=== PATIENT | female | born 1945 | race Caucasian/White ===

== ENCOUNTER 2018-10-03 16:13 | Inpatient (IN) | payer OTHER ==
[~2018-10-03] VITALS: Ht 162.6 cm; Wt 66.0 kg
--- NOTE | ~2018-10-03 | CON ---
[address] [address] CONSULTATION Name: JOSE MENENDEZ Room: [address] IN .R.#: [id number] Admission: 10/03/18 Attend Phys: Sixto Hale MD Discharge: Date of : 43 Report #: [id number] THIS REPORT FOR: //name// CC: Ancelmo Rodriguez DO Sixto Hale DATE OF SERVICE: 10/04/2018 INDICATION: Chest pain and elevated troponin consistent with non-ST elevation myocardial infarction. HISTORY OF PRESENT ILLNESS: The patient is a very pleasant 73-year-old white female with cardiac risk factors including hypertension, dyslipidemia, type 2 diabetes mellitus and family history of coronary artery disease. She also has peripheral vascular disease with recent right lower extremity intervention. She presented to the hospital with chest discomfort described as midsternal in location intermittently for the past week. She has also had increasing dyspnea on exertion and orthopnea for the past week. She has had swelling in her lower extremities for the past several days. She reports the chest pain is midsternal in location and associated with shortness of breath, but no diaphoresis, nausea or vomiting. She is without other cardiac complaint. PAST MEDICAL HISTORY: 1. Peripheral vascular disease. 2. Hyperlipidemia. 3. Hypertension. 4. Type 2 diabetes mellitus. 5. Previous C-spine surgery. 6. Complete hysterectomy. FAMILY HISTORY: Positive for coronary artery disease. SOCIAL HISTORY: The patient smoked, but quit smoking 25 years ago. She does not drink alcohol. ALLERGIES: SULFA. HOME MEDICATIONS: Glipizide 5 mg daily, aspirin 81 mg daily, glyburide 1.25 mg b.i.d., insulin 25 units at bedtime, Prozac 20 mg daily, lisinopril 20 mg daily, lovastatin 20 mg daily, Plavix 75 mg daily. REVIEW OF SYSTEMS: A 14-point review of systems is positive for some right-sided weakness from previous stroke. She has had a 45-pound weight loss in the last year. She has a nocturnal cough. [place] [address] CONSULTATION Name: JOSE MENENDEZ Room: [address] IN [facility]#: [id number] Admission: 10/03/18 Attend Phys: Sixto Hale MD Discharge: Date of : 43 Report #: [id number] outlined above. She has dyspnea on exertion, orthopnea and paroxysmal nocturnal dyspnea. She reports history of heart murmur as a younger adult. She reports lower extremity edema. She has type 2 diabetes mellitus. She reports medical allergies outlined above. She reports glasses without acute visual loss. Otherwise, 14-point review of systems was unremarkable. PHYSICAL EXAMINATION: VITAL SIGNS: Blood pressure 125/69, pulse 72 and regular. GENERAL: This is a pleasant elderly female in no distress. Mood and affect appropriate. HEENT: The patient is wearing glasses. Extraocular muscles intact. Mucous membranes moist. NECK: Shows no jugular venous distension. There are no carotid bruits. CHEST: Reveals clear lung felix without wheezes or rales. CARDIOVASCULAR: Reveals a regular rhythm. I do not appreciate gallop or murmur. ABDOMEN: Reveals normal bowel sounds. The abdomen is soft and nontender. EXTREMITIES: Shows no edema at this time. SKIN: Warm and dry. LABORATORY DATA: A 12-lead EKG shows sinus rhythm with Q-waves in leads V1 through V3. There is QRS widening consistent with a nonspecific intraventricular conduction delay. The rhythm is sinus. Labs are reviewed. Initial troponin was 0.44 followed by 0.46 and 0.46. Chest x-ray showed no acute cardiopulmonary abnormality. IMPRESSION AND RECOMMENDATIONS: 1. Non-ST elevation myocardial infarction. We will proceed with invasive cardiac catheterization. Continue aspirin and Plavix at this time. Further intervention pending the results of that study. 2. Symptoms to suggest acute heart failure. We will obtain further evaluation of left ventricular systolic function. We will adjust medications according to those findings. The patient presently appears stable. 3. Peripheral vascular disease. The patient has followup with Vascular Surgery in the near future for intervention to the left lower extremity where she is having stable claudication symptoms. 4. Diabetes per primary physician. 5. Hypertension, adequately controlled on current cardiac regimen. 6. Dyslipidemia. We will check fasting lipid profile. Continue statin agents as outpatient. By: 1125 2230William Julian MD, FACC /nt
[~2018-10-03 16:13] MED LIST: ALTACE10 M1 PO; ASPIRIN EC81 M1 PO; CENTRUM SILVER1 EAC4 PO; FENOFIBRATE54 MG PO; GLIPIZIDE XL5 MG PO; GLUCOPHAGE1000 MG PO; NEXIUM40 MG PO; ODORLESS GARLI500 MG PO; OS-CAL 500+D C1 EACH PO; PREDNISONE 20 M20 M1 PO; VISTARIL 25 MG25 M1 PO; XALATAN2.5 ML
[2018-10-03 16:18] VITALS: BP 125/80
[2018-10-03] MEDS ORDERED: PROZAC20 MG PO (16:23)
[2018-10-03] MEDS ORDERED: LOVASTATIN 20 M20 MG PO (16:24)
[2018-10-03] MEDS ORDERED: LISINOPRIL20 MG PO (16:24)
[2018-10-03] MEDS ORDERED: PLAVIX 75 MG TA75 M1 PO (16:24)
[2018-10-03] MEDS ORDERED: GLYBURIDE 2.52.5 MG PO (16:24)
[2018-10-03] MEDS ORDERED: BASAGLAR K100 UNIT/1 SQ (16:25)
[2018-10-03 16:52] LABS: ABSOLUTE BASOPHILS 0.1 thou/uL (0.0-0.2); ABSOLUTE EOSINOPHILS 0.1 thou/uL (0.0-0.7); ABSOLUTE LYMPHOCYTES 2.1 thou/uL (0.8-5.3); ABSOLUTE NEUTROPHILS 6.9 thou/uL (1.6-8.1); BASOPHILS 0.5 %; EOSINOPHILS 0.8 %; HEMATOCRIT 39.7 % (37.0-47.0); HEMOGLOBIN 12.8 gm/dL (12.0-15.0); LYMPHOCYTES 20.8 %; MCHC 32.3 g/dL (28.0-37.0); MCV 86.6 fL (80.0-100.0); NUCLEATED RBCS 0 /100WBC; PLATELET COUNT* 236 thou/uL (150-400); POLYS 67.9 %; RBC 4.58 mil/uL (4.20-5.00); RDW-CV 15.6 % (10.5-14.5); WBC 10.2 thou/uL (4.0-11.0)
[2018-10-03 17:02] LABS: APTT 25.8 Seconds (25.0-31.3); INR 1.2
[2018-10-03 17:11] LABS: CALCIUM 9.1 mg/dL (8.5-10.1); CREATININE 0.9 mg/dL (0.6-1.3); POTASSIUM 3.3 mmol/L (3.5-5.1); TROPONIN-I LEVEL 0.44 ng/mL (<0.06)
[2018-10-03 17:15] LABS: ALBUMIN 3.1 g/dL (3.4-5.0); CK-MB MASS 1.3 ng/mL (<0.5-3.6); MAGNESIUM 1.7 mg/dL (1.8-2.4); TOTAL BILIRUBIN 0.5 mg/dL (<0.1-1.0); TOTAL PROTEIN 6.8 g/dL (6.4-8.2)
[2018-10-03 18:10] VITALS: BP 141/82
[2018-10-03 18:42] VITALS: BP 141/82
--- NOTE | 2018-10-03 19:02 | NUR ---
PT TO UNIT AT APPROX 1830. ORIENTED TO ROOM AND UNIT. ALL VSS ON ROOM AIR
[2018-10-03 20:00] VITALS: BP 117/52
[2018-10-04] VITALS: BP 107/65
[2018-10-04 04:00] VITALS: BP 98/52
--- NOTE | 2018-10-04 04:49 | NUR ---
ASSUMED PT CARE AT APPROX 1930. PT IS AWAKE AND ORIENTED X4. VSS ON ROOM AIR. NOT IN DISTRESS. DENIES CHEST PAIN AT THE MOMENT. GROCERY STORE MANAGER IN PLACE TRACING SR. ASSESMENT DONE AND CHARTED. ADVISED TO HAVE NOTHING PER [facility] MIDNIGHT FOR CARDIOLOGY CONSULT. CALL LIGHT WITHIN REACH. HOURLY ROUNDING DONE FOR PT SAFETY.
[2018-10-04 08:00] VITALS: BP 125/69
--- NOTE | 2018-10-04 10:47 | NUR ---
PT A/O. TELE TRACKING NSR WITH PVC'S AND ALL VSS ON ROOM AIR. CONTINUES TO DENY CP, SOA AT REST. REMAINS NPO FOR POSSIBLE CARDIAC PROCEDURE. EDUCATED ON SAFETY AND PLAN OF CARE. PLEASE SEE ASSESSMENT FOR ADDITIONAL INFORMATION. WILL CONT TO MONITOR
--- NOTE | 2018-10-04 12:14 | EKG ---
[place] [address] ELECTROCARDIOGRAM REPORT Name: JOSE MENENDEZ Room: [address] ADM IN .R.#: [id number] Admission: 10/03/18 Attend Phys: Sixto Hale MD Discharge: Date of : 43 Report #: [id number] THIS REPORT FOR: //name// [facility] ED Test Date: 2018-10-03 Test Time: 16:21:24 Pat Name: JOSE MENENDEZ Department: Room: [facility] Gender: F Joggle Press Operator: LESLY : 1945 Requested By: Chino Vaughn Order Number: [id number] MD: William Julian Measurements Intervals [place] Rate: 97 P: 68 [place]: 192 QRS: 50 QRSD: 110 T: 142 QT: 371 QTc: 472 Interpretive Statements Sinus rhythm Probable left atrial enlargement Anteroseptal infarct, age indeterminate Lateral leads are also involved No previous ECG available for comparison Electronically Signed On 10-04-2018 12:14:37 CDT by William Julian [email or web address] <ELECTRONICALLY SIGNED> By: William Julian MD, [facility] 10/04/18 1214 1621 1621 William Julian MD, FAC /EPI
[2018-10-04 13:04] VITALS: BP 130/70
[2018-10-04 17:26] VITALS: BP 112/70
[2018-10-04 19:40] VITALS: BP 111/63
[2018-10-05] VITALS (14 sets, daily range): BP systolic 96–125; BP diastolic 43–78
--- NOTE | 2018-10-05 04:12 | NUR ---
RECIEVED REPORT AND ASSUMED CARE AT 1900. BRAILLE TRANSLATOR IN PLACE. VITAL SIGNS STABLE. PT DENIED ANY PAIN AT THIS TIME. PT IS UP WITH STANDBY ASSIST. ASSESSMENT COMPLETED AND DISCUSSED PLAN OF CARE, PT UNDERSTANDS. BED LOCKED AND CALL LIGHT WITHIN REACH. FALL PRECAUTIONS IN PLACE. HOURLY ROUNDING DONE AND ALL NEEDS MET. NURSING WILL CONTINUE TO MONITOR.
[2018-10-05 09:10] LABS: CHOLESTEROL 137 mg/dL (<200); HDL CHOLESTEROL 35 mg/dL (>40); LDL CHOLESTEROL 82 mg/dL (<100); TC:HDL 3.9 Ratio (Not establshd); TRIGLYCERIDE 101 mg/dL (<150); VLDL 20 mg/dL (<40)
[2018-10-05 09:13] LABS: SERUM ASSESSMENT Clear
--- NOTE | 2018-10-05 09:54 | NUR ---
Pt is A&O. Resides at home alone, continues to cook and clean, Pt does not drive, friends take her to run errands. No DME. Hx of HH post stroke, does not recall the name of the agency. No hx of SNF. Goal is home at ne. No needs anticipated.
[2018-10-05 10:27] LABS: HEMATOCRIT 40.5 % (37.0-47.0); MCH 27.7 pg (26.0-34.0); MCV 86.6 fL (80.0-100.0); MPV 10.8 fl. (7.2-11.1); RBC 4.68 mil/uL (4.20-5.00); RDW-CV 15.5 % (10.5-14.5); WBC 7.3 thou/uL (4.0-11.0)
[2018-10-05 10:36] LABS: CALCIUM 8.5 mg/dL (8.5-10.1); CREATININE 0.9 mg/dL (0.6-1.3); POTASSIUM 4.3 mmol/L (3.5-5.1); TOTAL BILIRUBIN 0.5 mg/dL (<0.1-1.0); TOTAL PROTEIN 6.4 g/dL (6.4-8.2)
[2018-10-05 10:38] LABS: APTT 26.6 Seconds (25.0-31.3)
[2018-10-05 11:01] LABS: INR 1.1; PROTIME 11.2 Seconds (9.20-11.50)
--- NOTE | 2018-10-05 13:59 | 2DMMODE ---
[place] [address] 2 D/M-MODE ECHOCARDIOGRAM Name: JOSE MENENDEZ Room: [address] IN [facility]#: [id number] Admission: 10/03/18 Attend Phys: Sixto Hale, Discharge: Date of : 43 Date of Service: 10/05/18 1359 Report #: [id number] THIS REPORT FOR: //name// APPROVED REPORT Study performed: 10/05/2018 11:53:28 EXAM: Comprehensive 2D, Doppler, and color-flow Echocardiogram Patient Location: In-Patient Room #: [facility] Status: routine BSA: 1.71 HR: 67 bpm BP: 108/67 mmHg Rhythm: NSR Other Information Study Quality: Good Indications Dyspnea Chest Pain 2D Dimensions IVSd: 7.93 (7-11mm) LVOT Diam: 19.65 (18-24mm) LVDd: 59.35 mm PWd: 9.46 (7-11mm) Ascending Ao: 28.28 (22-36mm) LVDs: 50.97 (25-40mm) Aortic Root: 30.86 mm Volumes Left Atrial Volume (Systole) LA ESV Index: 31.50 mL/m2 Aortic Valve AoV Peak Reymundo.: 1.29 m/s AO Peak Gr.: 6.69 mmHg LVOT Max P.02 mmHg AO Mean Gr.: 3.80 mmHg LVOT Mean P.31 mmHg LVOT Max V: 0.87 m/s AO V2 VTI: 23.35 cm LVOT Mean V: 0.52 m/s AMANDEEP (VTI): 1.79 cm2 LVOT V1 VTI: 13.77 cm Mitral Valve E/A Ratio: 1.14 MV Decel. Time: 153.32 [place] [address] 2 D/M-MODE ECHOCARDIOGRAM Name: JOSE MENENDEZ Room: [address] IN ..#: [id number] Admission: 10/03/18 Attend Phys: Sixto Hale, Discharge: Date of : 43 Date of Service: 10/05/18 1359 Report #: [id number] MV E Max Reymundo.: 0.85 m/s MV PHT: 44.46 ms MVA (PHT): 4.95 cm2 TDI E/Lateral E': 10.63 E/Medial E': 14.17 Medial E' Reymundo.: 0.06 m/s Lateral E' Reymundo.: 0.08 m/s Pulmonary Valve PV Peak Reymundo.: 0.81 m/s PV Peak Gr.: 2.64 mmHg Tricuspid Valve RAP Estimate: 5.00 mmHg TR Peak Gr.: 27.02 mmHg RVSP: 32.00 mmHg PA Pressure: 32.00 mmHg Left Ventricle Left ventricle is mildly dilated. There is prominent anterolataeral hypokinesis and mild inferior hypokinesis. There is normal left ventricular wall thickness. Left ventricular systolic function is moderate to severely decreased. LVEF is 35%. The left ventricular diastolic function is normal. Right Ventricle The right ventricle is normal size. The right ventricular systolic function is normal. Atria The left atrium size is normal. The right atrium size is normal. Aortic Valve Mild aortic valve sclerosis. No aortic regurgitation is present. No hemodynamically significant valvular aortic stenosis. Mitral Valve There is mitral annular calcification. Mild to moderate mitral regurgitation. No evidence of mitral valve stenosis. Tricuspid Valve The tricuspid valve is normal in structure. Mild tricuspid regurgitation. Mild pulmonary hypertension. Pulmonic Valve The pulmonary valve is normal in structure. [place] [address] 2 D/M-MODE ECHOCARDIOGRAM Name: JOSE MENENDEZ Roberto Room: [address]#: [id number] Admission: 10/03/18 Attend Phys: Sixto Hale, Discharge: Date of : 43 Date of Service: 10/05/18 1359 Report #: [id number] valvular regurgitation. Great Vessels The aortic root is normal in size. IVC is normal in size and collapses <50% with inspiration. Pericardium There is no pericardial effusion. Left pleural effusion. <Conclusion> Left ventricle is mildly dilated. There is normal left ventricular wall thickness. Left ventricular systolic function is moderate to severely decreased. The left ventricular diastolic function is normal. The right ventricle is normal size. The left atrium size is normal. Mild aortic valve sclerosis. No aortic regurgitation is present. No hemodynamically significant valvular aortic stenosis. There is mitral annular calcification. Mild to moderate mitral regurgitation. No evidence of mitral valve stenosis. The tricuspid valve is normal in structure. Mild tricuspid regurgitation. Mild pulmonary hypertension. IVC is normal in size and collapses <50% with inspiration. There is no pericardial effusion. There is prominent anterolataeral hypokinesis and mild inferior hypokinesis. LVEF is 35%. <ELECTRONICALLY SIGNED> By: Rd De La Torre MD, FACC 10/05/[address] Tor[address] MD, FACC /INF
--- NOTE | 2018-10-05 19:46 | NUR ---
RECEIVED REPORT FROM [facility] NURSE. ASSUMED CARE OF PT AROUND 0730. VSS. PT A&O X4. SURG TECH IN PLACE TRACING SR WITH NO CHANGES THIS SHIFT. AM ASSESSMENT AND VITALS COMPLETED CHARTED. PT COMPELTED CARDIAC CATH THIS SHIFT, NO INTERVENTION DONE. RIGHT GROIN CDI. NO HEMATOMA. FRIENDS AT BEDSIDE. PT DENIES PAIN OR DISCOMFORT. ALL NEEDS MET AT THIS TIME. FALL PRECAUTIONS IN PLACE. CALL LIGHT IS WITHIN REACH. HOURLY ROUNDING PERFOMRED.
[2018-10-06] VITALS: BP 123/65
[2018-10-06 04:00] VITALS: BP 107/65
[2018-10-06 08:00] VITALS: BP 105/77
--- NOTE | 2018-10-06 08:41 | NUR ---
PATIENT RESTING WELL IN BED. REFUSING IVF AND REFUSING AM LABS. DENIES PAIN OR NEEDS. DRESSING TO RIGHT GROIN REMAINS UNCHANGED. REPORT GIVEN TO ONCOMING NURSE.
--- NOTE | 2018-10-06 09:00 | NUR ---
ASSUMED CARE OF PT AT 0730. PT RESTING IN BED. PT A&0X4, DENIES ANY PAIN OR SHORTNESS OF BREATH AT THIS TIME. PT TRACING SR ON THE SPORTS PHYSICIAN. ON RA SAT UPPER 90'S. PT UP AD MEGAN IN ROOM. RIGHT GROIN CATH SITE IS C/D/I WITH NO HEMATOMA NOTED. PT GOAL FOR TODAY IS TO TRANSFER OUT FOR BYPASS. AM ASSESSMENT CHARTED. MEDICATIONS PER SEP. PT REPOSITIONS SELF. HOURLY ROUNDING OBSERVED. BED IN LOW POSITION. CALL LIGHT WITHIN REACH. WILL CONTINUE PLAN OF CARE.
--- NOTE | 2018-10-06 10:10 | NUR ---
Pt needs to transfer for open heart surgery, plan was for Pt to transfer to [facility], but [facility] is not a covered hospital. Updated Dr De La Torre and Aure, KE. Dr Anderson to contact someone at to determine ability to accept, CM will initiate transfer once confirmation is received from Dr Anderson to proceed. Updated Pt and nurse. Following.
--- NOTE | 2018-10-06 11:23 | NUR ---
SURVEYOR ROD HELPER SPOKE TO KAYLA WITH THE TRANSFER TEAM TO DISCUSS THE TRANSFER TO [facility] FOR THE PATIENT. KAYLA INFORMS THAT DR RIOS HAD INITIATED THE TRANSFER AND THEY HAD RECIEVED THE PATIENT'S FACESHEET, AND NO OTHER INFORMATION IS NEEDED AT THIS TIME. KAYLA ALSO INFORMS THAT AT THIS TIME THE TRANSFER TEAM IS AWAITING FINANCIAL CLEARANCE, AND WILL RETURN CALL WHEN THAT IS RECIEVED AND THE PATIENT IS ACCEPTED. CM WILL REMAIN AVIALABLE TO ASSIST AND FOLLOW NEEDED. TRANSFER TEAM PHONE: [phone]
[2018-10-06 13:00] VITALS: BP 94/46
--- NOTE | 2018-10-06 13:51 | CARD ---
[address] [address] CARDIAC CATH REPORT Name: JOSE MENENDEZ Room: [address] IN .R.#: [id number] Admission: 10/03/18 Attend Phys: Sixto Hale MD Discharge: Date of : 43 Report #: [id number] THIS REPORT FOR: //name// APPROVED REPORT Study performed: 10/05/2018 13:27:03 Patient Details The patient is a 73 year-old female Event Personnel [address] De La Torre Private Client Advisor, Freya De Oliveira Industrial Renderer, Eve Balbuena Monitor, Rodrigo Mejia Scrub Procedures Performed Left Heart Cath w/or w/o Coronaries [id number] [facility] Hemostasis w/ Angioseal , Aortogram Indication Non-STEMI Risk Factors Hypercholesterolemia, Hypertension Admission/Lab Medications/Medications given during procedure Fentanyl IV 25 mcg, Midazolam (Versed) IV 1 mg, Lidocaine Subcut 15 ml Procedure Narrative The patient was brought electively to the Cardiac Catheterization Laboratory and was prepped and draped in a sterile manner. The right femoral was infiltrated with 2% Lidocaine subcutaneous anesthesia. A 6fr Ultimum Sheath sheath was inserted into the RFA. Coronary angiography was performed using coronary diagnostic catheters. The right coronary system was accessed and visualized with a 6fr Ultimum Sheath catheter. The left coronary system was accessed and visualized with a JL4 catheter. The left ventricle was accessed and visualized with a 3DRC 6fr catheter. Left ventricular/Aortic Valve gradient assessed via catheter pullback. Closure device was deployed with a Fr Mynx. There was no hematoma. Intraoperative Conscious Sedation Dose: 93 mGy [facility] [address] [place] [address] CARDIAC CATH REPORT Name: JOSE MENENDEZ Room: [address] IN [facility].#: [id number] Admission: 10/03/18 Attend Phys: Sixto Hale MD Discharge: Date of : 43 Report #: [id number] Contrast Type and Amount: Visipaque 60 ml Diagnostic Cath Left Main 90% heavily calcified proximal left main coronary artery stenosis LAD 90 Percent calcified proximal LAD stenosis with prominent thrombus suggested with 50% mid LAD narrowing and 70% narrowing of the apical LAD with an epicardial collateral filling the distal right coronary artery in retrograde fashion Circumflex Nondominant vessel with 90% proximal stenosis Right Coronary 100% occlusion at the origin with [id number] collaterals filling the distal right coronary artery Left Ventriculography Left Ventriculography was not performed. Hemodynamics The aortic pressure is 90/40 mmHg with a mean of 57 mmHg. The left ventricular end diastolic pressure is 15 mmHg. There was no gradient across the aortic valve upon pullback. Conclusion #1 severe multivessel coronary artery disease characterized by the following: A 90% calcified proximal left main coronary artery stenosis B 90% calcified proximal LAD stenosis with local thrombus at the site with 50% mid LAD narrowing and 70% narrowing of the apical LAD prior to the epicardial collaterals which fill the right coronary artery in retrograde fashion C 90% stenosis of the proximal portion of the nondominant circumflex D 100% occlusion of the dominant right coronary artery at the origin with [id number] collaterals filling the distal right coronary artery in retrograde fashion #2 minimal elevation of left end-diastolic pressure at rest Recommendations Cardiac Risk Reduction Program CABG [facility] [address] [place] [address] CARDIAC CATH REPORT Name: JOSE MENENDEZ Room: [address] IN [facility]#: [id number] Admission: 10/03/18 Attend Phys: Sixto Hale MD Discharge: Date of : 43 Report #: [id number] Diagnostic Cath Approved by: Rd De La Torre MD Date/Time: 10/06/2018 13:49:34 <ELECTRONICALLY SIGNED> By: Rd De La Torre MD, FACC 10/06/18 [address] De La Torre MD, FACC /INF
--- NOTE | 2018-10-06 14:19 | NUR ---
PT HAD SHOWER INDEPENDENTLY TODAY. TRANSFER ORDERS RECEIVED FOR PT TO TRANSFER TO FOR BYPASS. BUMPER OPERATOR REMOVED. REPORT CALLED TO LUÍS ZACARIAS AT . PT TRANSFERRED WITH ALL BELONGINGS AND PAPERWORK VIA [facility].
== END 2018-10-06 14:18 | disposition short-term general hospital (02) | DRG 280 ==
LOC: M.ERS 16:13 → M.2W 17:39 → M.TBA-ER 17:39 → M.2W 18:28
PROVIDERS: Emergency Medicine; Internal Medicine; Registered Nurse
PROC: B2111ZZ Fluoroscopy of Multiple Coronary Arteries using Low Osmolar Contrast (ICD-10-PCS; principal; 2018-10-05)
PROC: 4A023N7 Measurement of Cardiac Sampling and Pressure, Left Heart, Percutaneous Approach (ICD-10-PCS; principal; 2018-10-05)
DX: I21.4 Non-ST elevation (NSTEMI) myocardial infarction (principal); I50.43 Acute on chronic combined systolic (congestive) and diastolic (congestive) heart failure; J69.0 Pneumonitis due to inhalation of food and vomit; I25.10 Atherosclerotic heart disease of native coronary artery without angina pectoris; K21.9 Gastro-esophageal reflux disease without esophagitis; E78.5 Hyperlipidemia, unspecified; I11.0 Hypertensive heart disease with heart failure; E11.51 Type 2 diabetes mellitus with diabetic peripheral angiopathy without gangrene; Z86.73 Personal history of transient ischemic attack (TIA), and cerebral infarction without residual deficits; Z87.891 Personal history of nicotine dependence; Z79.82 Long term (current) use of aspirin; Z88.2 Allergy status to sulfonamides; Z90.710 Acquired absence of both cervix and uterus; Z79.899 Other long term (current) drug therapy

== ENCOUNTER 2018-10-24 13:07 | Emergency (ER) | payer OTHER ==
[~2018-10-24] VITALS: Ht 162.6 cm; Wt 61.0 kg
[~2018-10-24 13:07] MED LIST changes: +BASAGLAR K100 UNIT/1 SQ; +GLYBURIDE 2.52.5 MG PO; +LISINOPRIL20 MG PO; +LOVASTATIN 20 M20 MG PO; +PLAVIX 75 MG TA75 M1 PO; +PROZAC20 MG PO
[2018-10-24] MEDS ORDERED: LASIX 40 MG TAB40 M2 PO (14:05)
[2018-10-24] MEDS ORDERED: CARVEDILOL3.125 MG PO (14:05)
[2018-10-24] MEDS ORDERED: FLOMAX0.4 MG PO (14:06)
[2018-10-24] MEDS ORDERED: OXYCODONE HCL 55 MG PO (14:06)
[2018-10-24] MEDS ORDERED: ROSUVASTATIN CA20 MG PO (14:06)
[2018-10-24] MEDS ORDERED: GLYBURIDE 2.52.5 MG PO (14:07)
[2018-10-24] MEDS ORDERED: KEFLEX500 M1 PO (14:24)
[2018-10-24 14:44] VITALS: BP 106/61
== END 2018-10-24 14:44 | disposition home or self-care (01) ==
LOC: M.ERS 13:07
DX: T81.49XA Infection following a procedure, other surgical site, initial encounter (principal); L08.89 Other specified local infections of the skin and subcutaneous tissue; K21.9 Gastro-esophageal reflux disease without esophagitis; I10 Essential (primary) hypertension; M19.90 Unspecified osteoarthritis, unspecified site; E78.5 Hyperlipidemia, unspecified; I25.10 Atherosclerotic heart disease of native coronary artery without angina pectoris; Z90.710 Acquired absence of both cervix and uterus; Z87.891 Personal history of nicotine dependence; Z88.2 Allergy status to sulfonamides; Y84.8 Other medical procedures as the cause of abnormal reaction of the patient, or of later complication, without mention of misadventure at the time of the procedure; Y92.89 Other specified places as the place of occurrence of the external cause

== ENCOUNTER 2021-02-06 16:18 | Emergency (ER) | payer OTHER ==
[~2021-02-06] VITALS: Ht 160 cm; Wt 63.0 kg
[~2021-02-06 16:18] MED LIST changes: +CARVEDILOL3.125 MG PO; +FLOMAX0.4 MG PO; +KEFLEX500 M1 PO; +LASIX 40 MG TAB40 M2 PO; +OXYCODONE HCL 55 MG PO; +ROSUVASTATIN CA20 MG PO
[2021-02-06] MEDS ORDERED: COZAAR 25 MG TA25 M1 PO (18:40)
[2021-02-06] MEDS ORDERED: PLAVIX 75 MG TA75 MG PO (18:41)
[2021-02-06] MEDS ORDERED: VYZULTA5 ML OPHTHALMIC (18:41)
[2021-02-06 18:44] LABS: ABSOLUTE BASOPHILS 0.1 thou/uL (0.0-0.2); ABSOLUTE EOSINOPHILS 0.1 thou/uL (0.0-0.7); ABSOLUTE LYMPHOCYTES 2.4 thou/uL (0.8-5.3); ABSOLUTE MONOCYTES 1.1 thou/uL (0.0-1.2); ABSOLUTE NEUTROPHILS 7.6 thou/uL (1.6-8.1); BASOPHILS 1.1 %; HEMATOCRIT 38.6 % (37.0-47.0); HEMOGLOBIN 13.1 gm/dL (12.0-15.0); LYMPHOCYTES 21.1 %; MCH 27.9 pg (26.0-34.0); MCHC 33.9 g/dL (28.0-37.0); MCV 82.3 fL (80.0-100.0); MONOCYTES 9.7 %; NUCLEATED RBCS 0 /100WBC; PLATELET COUNT* 230 thou/uL (150-400); POLYS 67.1 %; RBC 4.69 mil/uL (4.20-5.00); RDW-CV 13.9 % (10.5-14.5); WBC 11.3 thou/uL (4.0-11.0)
[2021-02-06 18:55] LABS: INR 1.1; PROTIME 11.3 Seconds (9.20-11.50)
[2021-02-06 19:23] VITALS: BP 159/63
== END 2021-02-06 19:23 | disposition home or self-care (01) ==
LOC: M.ERS 16:18
PROVIDERS: Nurse Practitioner Psychiatric/Mental Health
DX: R04.0 Epistaxis (principal); K21.9 Gastro-esophageal reflux disease without esophagitis; M19.90 Unspecified osteoarthritis, unspecified site; E78.5 Hyperlipidemia, unspecified; I25.10 Atherosclerotic heart disease of native coronary artery without angina pectoris; Z79.01 Long term (current) use of anticoagulants; Z88.2 Allergy status to sulfonamides; Z87.891 Personal history of nicotine dependence; Z90.710 Acquired absence of both cervix and uterus